=== PATIENT | female | born 1955 | race Caucasian/White ===

== ENCOUNTER → 2017-10-26 | Outpatient (CLI) | payer OTHER ==
[~2017-10-26] MED LIST: ACCUNEB SO1.25 MG/1 INH; TORADOL 10 MG T10 MG PO; VALIUM5 MG PO
--- NOTE | 2017-10-26 11:23 | NUR ---
ARRIVED AMBULATORY. MADE SELF COMFORTABLE IN RECLINER. PORT A CATH ACCESSED WITH OUT DIFFICULTY. GOOD BRISK BLOOD RETURN NOTED AND FLUSHED WITH EASE. PORT FLUSHED THEN DEACCESSED. TOLERATED WELL. DENEIS QUESTIONS OR NEEDS AT DISCHARGE.
== END ==
LOC: M.INFUS 09:00
DX: Z79.01 Long term (current) use of anticoagulants (principal)

== ENCOUNTER → 2017-11-03 | Outpatient (CLI) | payer OTHER ==
[2017-11-03 08:42] LABS: CREATININE 0.8 mg/dL (0.6-1.3)
== END ==
LOC: M.LAB 08:00 → M.CT 08:05
DX: C54.1 Malignant neoplasm of endometrium (principal); C53.0 Malignant neoplasm of endocervix; C77.9 Secondary and unspecified malignant neoplasm of lymph node, unspecified; C79.62 Secondary malignant neoplasm of left ovary; M41.86 Other forms of scoliosis, lumbar region; M47.896 Other spondylosis, lumbar region; J98.4 Other disorders of lung; R91.1 Solitary pulmonary nodule

== ENCOUNTER → 2020-09-26 | Outpatient (CLI) | payer OTHER ==
[2020-09-26 12:58] LABS: ALBUMIN 3.6 g/dL (3.4-5.0); CALCIUM 9.1 mg/dL (8.5-10.1); CREATININE 0.7 mg/dL (0.6-1.3); MAGNESIUM 1.8 mg/dL (1.8-2.4); POTASSIUM 3.7 mmol/L (3.5-5.1); TOTAL BILIRUBIN 0.3 mg/dL (<0.1-1.0); TOTAL PROTEIN 6.3 g/dL (6.4-8.2)
== END ==
LOC: M.RAD 11:42
PROVIDERS: ATTEND Family Medicine
DX: J84.10 Pulmonary fibrosis, unspecified (principal); J45.909 Unspecified asthma, uncomplicated; L02.415 Cutaneous abscess of right lower limb

== ENCOUNTER → 2020-10-07 | Outpatient (CLI) | payer OTHER | LOC: M.CT 13:51 | PROVIDERS: ATTEND Family Medicine | DX: J84.10 Pulmonary fibrosis, unspecified (principal); R91.8 Other nonspecific abnormal finding of lung field ==

== ENCOUNTER → 2020-10-21 | Outpatient (CLI) | payer OTHER ==
[2020-10-21 14:37] LABS: ABSOLUTE EOSINOPHILS 0.3 thou/uL (0.0-0.7); ABSOLUTE LYMPHOCYTES 0.7 thou/uL (0.8-5.3); ABSOLUTE MONOCYTES 0.4 thou/uL (0.0-1.2); ABSOLUTE NEUTROPHILS 3.1 thou/uL (1.6-8.1); BASOPHILS 0.9 %; HEMATOCRIT 32.6 % (37.0-47.0); HEMOGLOBIN 10.3 gm/dL (12.0-15.0); MCH 24.5 pg (26.0-34.0); MCHC 31.6 g/dL (28.0-37.0); MCV 77.4 fL (80.0-100.0); MONOCYTES 9.5 %; MPV 6.7 fl. (7.2-11.1); NUCLEATED RBCS 0 /100WBC; PLATELET COUNT* 286 thou/uL (150-400); POLYS 67.6 %; RBC 4.21 mil/uL (4.20-5.00); WBC 4.5 thou/uL (4.0-11.0)
[2020-10-21 14:46] LABS: APTT 22.8 Seconds (25.0-31.3); INR 0.9; PROTIME 9.9 Seconds (9.20-11.50)
== END ==
LOC: M.LAB 14:07
PROVIDERS: ATTEND Internal Medicine Critical Care Medicine
DX: R91.8 Other nonspecific abnormal finding of lung field (principal)

== ENCOUNTER → 2020-10-22 | Outpatient (CLI) | payer OTHER ==
--- NOTE | 2020-10-22 15:09 | 2DMMODE ---
[place] [address] 2 D/M-MODE ECHOCARDIOGRAM Name: RENEE MACKENZIE Room: [facility]#: [id number] Admission: 10/22/20 Attend Phys: Prosper Perez MD Discharge: Date of : 55 Date of Service: 10/22/20 1508 Report #: [id number] THIS REPORT FOR: cc: Dom Conteh Gregory DO Liston, Michael J. MD [facility] ~ APPROVED REPORT Study performed: 10/22/2020 12:53:36 EXAM: Comprehensive 2D, Doppler, and color-flow Echocardiogram Patient Location: Out-Patient BSA: 1.57 HR: 77 bpm BP: 130/80 mmHg Other Information Study Quality: Good Indications Dyspnea Peripheral Edema 2D Dimensions IVSd: 10.17 (7-11mm) LVOT Diam: 19.84 (18-24mm) LVDd: 37.18 mm PWd: 10.51 (7-11mm) Ascending Ao: 30.10 (22-36mm) LVDs: 22.70 (25-40mm) Aortic Root: 24.48 mm Volumes Left Atrial Volume (Systole) LA ESV Index: 13.00 mL/m2 Aortic Valve AoV Peak Kwame.: 1.13 m/s AO Peak Gr.: 5.11 mmHg LVOT Max P.73 mmHg AO Mean Gr.: 2.47 mmHg LVOT Mean P.87 mmHg LVOT Max V: 1.09 m/s AO V2 VTI: 19.48 cm LVOT Mean V: 0.61 m/s RYLEE (VTI): 3.22 cm2 LVOT V1 VTI: 20.31 [place] [address] 2 D/M-MODE ECHOCARDIOGRAM Name: RENEE MACKENZIE Room: [facility]#: [id number] Admission: 10/22/20 Attend Phys: Prosper Perez MD Discharge: Date of : 55 Date of Service: 10/22/20 1508 Report #: [id number] E/A Ratio: 0.61 MV Decel. Time: 192.69 ms MV E Max Kwame.: 0.58 m/s MV PHT: 55.88 ms MVA (PHT): 3.94 cm2 TDI E/Lateral E': 5.80 E/Medial E': 7.25 Medial E' Kwame.: 0.08 m/s Lateral E' Kwame.: 0.10 m/s Pulmonary Valve PV Peak Kwame.: 0.72 m/s PV Peak Gr.: 2.08 mmHg Tricuspid Valve RAP Estimate: 5.00 mmHg TR Peak Gr.: 14.17 mmHg RVSP: 19.17 mmHg PA Pressure: 19.17 mmHg Left Ventricle The left ventricle is normal size. There is normal LV segmental wall motion. There is normal left ventricular wall thickness. Left ventricular systolic function is normal. LVEF is 55-60%. Grade I - abnormal relaxation pattern. Right Ventricle The right ventricle is normal size. The right ventricular systolic function is normal. Atria The left atrium size is normal. The right atrium size is normal. Aortic Valve The aortic valve is normal in structure. No aortic regurgitation is present. There is no aortic valvular stenosis. Mitral Valve The mitral valve is normal in structure. Trace mitral regurgitation. No evidence of mitral valve stenosis. Tricuspid Valve The tricuspid valve is normal in structure. Mild tricuspid regurgitation. No pulmonary hypertension[place] [address] 2 D/M-MODE ECHOCARDIOGRAM Name: MACKENZIERENEE Room: [facility]#: [id number] Admission: 10/22/20 Attend Phys: Prosper Perez MD Discharge: Date of : 55 Date of Service: 10/22/20 1508 Report #: [id number] The pulmonary valve is normal in structure. Mild pulmonic regurgitation. Great Vessels The aortic root is normal in size. IVC is normal in size and collapses >50% with inspiration. Pericardium There is no pericardial effusion. <Conclusion> The left ventricle is normal size. There is normal left ventricular wall thickness. Left ventricular systolic function is normal. LVEF is 55-60%. Grade I - abnormal relaxation pattern. Trace mitral regurgitation. Mild tricuspid regurgitation. No pulmonary hypertension. IVC is normal in size and collapses >50% with inspiration. <ELECTRONICALLY SIGNED> By: Albert Duran MD, FACC 10/22/20 1508 1508 1508 Albert Duran MD, FACC /INF
== END ==
LOC: M.CRD 10-21 14:48
PROVIDERS: ATTEND Internal Medicine Critical Care Medicine
DX: I08.8 Other rheumatic multiple valve diseases (principal); R06.02 Shortness of breath; R60.0 Localized edema

== ENCOUNTER → 2020-11-07 | Outpatient (CLI) | payer OTHER ==
[2020-11-07] VITALS (17 sets, daily range): BP systolic 118–158; BP diastolic 65–81
[~2020-11-07] VITALS: Ht 149.9 cm; Wt 63.5 kg
[2020-11-07 09:49] LABS: HEMATOCRIT 30.9 % (37.0-47.0); HEMOGLOBIN 9.7 gm/dL (12.0-15.0); MCHC 31.4 g/dL (28.0-37.0); MCV 76.6 fL (80.0-100.0); MPV 6.9 fl. (7.2-11.1); RBC 4.03 mil/uL (4.20-5.00); RDW-CV 16.7 % (10.5-14.5); WBC 6.4 thou/uL (4.0-11.0)
[2020-11-07 10:22] LABS: APTT 20.8 Seconds (25.0-31.3); PROTIME 10.5 Seconds (9.20-11.50)
[2020-11-07 10:39] LABS: CALCIUM 8.4 mg/dL (8.5-10.1); CREATININE 0.7 mg/dL (0.6-1.3); POTASSIUM 3.3 mmol/L (3.5-5.1)
[2020-11-07 10:44] LABS: ALBUMIN 3.4 g/dL (3.4-5.0); TOTAL BILIRUBIN 0.5 mg/dL (<0.1-1.0); TOTAL PROTEIN 6.4 g/dL (6.4-8.2)
--- NOTE | 2020-11-12 18:06 | PATH ---
[address] [address] PATHOLOGY RPT PROCEDURE Name: RENEE MACKENZIE Room: [facility] ANGELO Kirstie#: [id number] Admission: 11/07/20 Date of : 55 Discharge: Report #: [id number] Path Case #: [id number] [facility] Accession Number: [id number] . 01 Material submitted: . lung - RIGHT UPPER LUNG BIOPSY. Modifiers: right, upper . 01 Clinical history: . LUNG BIOPSY/MASS HX UTERINE CANCER 2012, CHEMO . 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 SEE COMMENT. LBQ 11/12/2020 1050 Local . 02 Comment: Each of the tissue cores shows scattered aggregates of malignant cells focally having a suggestion of glandular differentiation and associated with a desmoplastic response. Recognizing the clinical history provided of uterine cancer, a panel of properly controlled immunohistochemical studies is performed on A1 and highlights the neoplastic cells as follows, supporting the diagnosis: . TTF-1 - Negative Napsin -Negative p40 - Negative PAX8 - Positive Estrogen receptor - Positive . Reviewed with Dr. Mark Toribio on 11/12/2020 who agrees with the diagnosis. Dr. Perez notified at approximately 1700 on 11/12/2020. (LEBRON/db; 11/12/2020) . 02 Electronically signed: . Pavan Saravia MD, Pathologist NPI- [id number] . 01 Gross description: . The specimen is received in formalin, labeled "NIDA Trotter biopsy". Received are three needle cores of pale trimble tissue ranging in length from 0.5-0.8 cm, with each measuring 0.1 cm in diameter. The specimen is submitted entirely in cassettes A1 through A3. (CAA; 11/08/2020) QAC/QAC 11/08/2020 [facility] Local . [address] [place] [address] PATHOLOGY RPT PROCEDURE Name: RENEE MACKENZIE [facility] [id number] Admission: 11/07/20 Date of : 55 Discharge: Report #: [id number] Path Case #: [id number] Pathologist provided ICD-10: C34.11 . 02 CPT . 298668, H26387, C83121 Specimen Comment: A courtesy copy of this report has been sent to [phone], [phone] Specimen Comment: [phone] Specimen Comment: Report sent to / DR CALDERON Performed at: 01 [facility] [address], [place], [place] [id number] MD Harry Kirk MD Phone: [phone] Performed at: [address] [facility] [address] [address], [place], [place] [id number] MD Pavan Saravia MD Phone: [phone]
== END | disposition home or self-care (01) ==
LOC: M.CT 10-31 10:00
PROVIDERS: Radiology Diagnostic Radiology; ATTEND Internal Medicine Critical Care Medicine
DX: C34.11 Malignant neoplasm of upper lobe, right bronchus or lung (principal); J45.909 Unspecified asthma, uncomplicated; Z98.890 Other specified postprocedural states; Z79.899 Other long term (current) drug therapy; Z90.49 Acquired absence of other specified parts of digestive tract; Z85.42 Personal history of malignant neoplasm of other parts of uterus; Z88.0 Allergy status to penicillin; Z88.8 Allergy status to other drugs, medicaments and biological substances; Z88.2 Allergy status to sulfonamides; Z79.01 Long term (current) use of anticoagulants

== ENCOUNTER → 2021-03-05 | Outpatient (CLI) | payer OTHER ==
[2021-03-05 09:11] LABS: CREATININE 0.8 mg/dL (0.6-1.3)
== END ==
LOC: M.LAB 08:00 → M.CT 09:00
PROVIDERS: ATTEND Internal Medicine Hematology & Oncology
DX: C54.1 Malignant neoplasm of endometrium (principal); M51.36 Other intervertebral disc degeneration, lumbar region; M51.37 Other intervertebral disc degeneration, lumbosacral region

== ENCOUNTER → 2021-08-08 | Outpatient (CLI) | payer OTHER ==
[2021-08-08 14:01] LABS: CALCIUM 8.3 mg/dL (8.5-10.1); CREATININE 0.7 mg/dL (0.6-1.3); POTASSIUM 3.8 mmol/L (3.5-5.1)
== END ==
LOC: M.LAB 08-01 14:35 → M.CT 15:00
PROVIDERS: ATTEND Internal Medicine Hematology & Oncology
DX: C54.1 Malignant neoplasm of endometrium (principal); J84.10 Pulmonary fibrosis, unspecified; J98.4 Other disorders of lung; M47.816 Spondylosis without myelopathy or radiculopathy, lumbar region; Z90.710 Acquired absence of both cervix and uterus; Z90.722 Acquired absence of ovaries, bilateral